=== PATIENT | female | born 1955 | race Caucasian/White ===

== ENCOUNTER → 2016-08-01 | Outpatient (CLI) | payer OTHER ==
--- NOTE | 2016-08-02 06:17 | PAP/PSG TECHNICIAN REPORT ---
[facility] Pipe Stem Sawyer Polysomnogram Report Study name: None Report date: 08/02/2016 Study date: 08/01/2016 Referring Physician: Etienne ROBERTS M.D. Name: CHIP PHAM Interpreting Physician: Patricia Roberts M.D. Date of : 1955 Pipe Stem Sawyer: Nicole Singh RPSGT. Sex: Female Age: 60 Study Type: PSG Weight: 169 lbs 13 in Height: 60 years, Height 5' 5" Neck Circum: BMI: 28.12 Medications: ATENOLOL 25 MG, HYDROCHLOROTHIAZIDE 25 MG, POSTASSIUM CHLORIDE 20 MEQ, ATORVASTATIN 20 MG, LEVOTHYROXINE 50 MCG, PREMARIN 0.45 MG, ZOMIG 5 MG Patient History 60 yr-old female here for a baseline/split study. She has a history of daytime sleepiness, witnessed apneas, bruxism, and non-refreshing sleep. Her Dewey scale is 8. The test was started on room air. ETCO2 testing was not utilized during this study. Room 3 Parameters Monitored NPSG: E1-M2, E2-M1, Fp1-M2, Fp2-M1, F3-M2, F4-M2, F4-M1, C3-M2, C4-M2, C4-M1, O1-M2, O2-M2, O2-M1, T3-M2, T4-M1, P3-M2, P4-M1, CHIN1, CHIN2, HR, EKG, Legs, PFLOW, SNOR, FLOW, CFLOW, Tidal Volume, THOR, ABDO, SpO2, PLTH, CPRESS, ETCO2 Wave, ETCO2, pH Sleep Architecture Sleep Stages Time at Lights Off 9:57:31 PM STAGES Time (min.) TST (%) Time at Lights On 5:40:01 AM Wake 82.5 -- Total Recording Time (TRT) 462.50 min. N1 18.5 5 Total Sleep Period (TSP) 392.0 min. N2 221.5 58 Total Sleep Time (TST) 380.0min. N3 42.5 11 Awake Time 82.5 min. REM 97.5 26 Wake after Sleep Onset 15.0 min. Sleep Efficiency (SE) 82 % Sleep Onset Latency (BRITTNEY) 67.5 min. Number of Stage 1 Shifts None Awakenings 17 Stage Changes 75 Number of REM periods 5 REM 97.5 26 REM Latency 74.0 min. NREM 282.5 74 Body Position Analysis Supine Right Left Side Prone Vertical Total Sleep Time (min.) 89.6 248.0 109.3 357.29 0.0 0.0 Total Sleep Time (%) 6% 65% 29% 94 0% N/A% Total Sleep Time REM (min.) 0.0 74.5 23.0 None 0.0 0.0 Total Sleep Time NREM (min.) 22.7 173.5 86.3 None 0.0 0.0 Intermittent Wake (min.) 66.9 9.8 5.7 None 0.0 0.0 Total Sleep Period (%) 6% None None None None None Arousals Myoclonus (PLM) * Events Count Index Events Count Index Spontaneous 15 2 Events Awake (PLMW) 76 55.3 Respiratory 5 0.8 Events Asleep w/ Arousal (PLMA) 4 0.6 PLM 4 1 Events Asleep w/o Arousal (PLMS) 38 6.0 Snoring 7 1 Total Asleep 42 6.6 Total 31 5 Total 118 15 Respiratory Analysis * CA OA MA CH H RERA Total Count 2 0 0 0 31 2 33 Index 0.3 0.0 0.0 0 4.9 0 5.5 Mean Duration 14.0 0.0 0.0 0.00 16.3 16.7 16.2 Longest Duration 16.2 0.0 0.0 0.00 0.0 17.4 35.7 Respiratory Event Summary Total Supine ~Supine Right Left Prone REM NREM Apneas Count 2 2 0 0 0 N/A 0 2 Index 0.3 5 0 0.0 0.0 N/A 0 0 Hypopneas (4% Desat) Count 31 8 23 0 23 N/A 16 15 Index 4.9 21.1 4 0.0 12.6 N/A 9.8 3.2 Apneas & All Hypopneas Count 33 10 23 0 23 N/A 16 17 Index 5.2 26 4 0 13 N/A 9.8 3.6 Respiratory Events ([employer]+All Hyp+RERA) Count 33 10 25 1 24 N/A 16 17 Index 5.5 26 4 0.2 13.2 N/A 9.8 4.0 Respiratory Related Arousal Count 5 10 4 1 3 N/A 0 5 Index 0.8 3 1 0 2 N/A 0 1 Snoring Analysis Supine Right Left Prone REM NREM Total Snore duration 20.1 min Snores count 65 372 385 N/A 212 610 822 Snore mean duration 1.5 Sec Snores index 172 90 211 N/A 130.5 129.6 129.8 TST with snoring (%) 5.3% Desaturation Event Summary: Minimum %SpO2 Event Count Mean/Min/Max Duration(sec.) Desaturation Index % Time In Bed > 90 53 24.4 / 5.8 / 57.0 7.1 97.2 86 - 90 2 12.5 / 10.5 / 14.5 9.4 2.8 81 - 85 0 N/A 0.0 0.0 76 - 80 0 N/A 0.0 0.0 71 - 75 0 N/A 0.0 0.0 66 - 70 0 N/A 0.0 0.0 61 - 65 0 N/A 0.0 0.0 56 - 60 0 N/A 0.0 0.0 51 - 55 0 N/A 0.0 0.0 < 50 0 N/A 0.0 0.0 Total REM NREM Awake <50% 0.0 min. 0.0 min. 0.0 min. 0.0 min. 51 - 60% 0.0 min. 0.0 min. 0.0 min. 0.0 min. 61 - 70% 0.0 min. 0.0 min. 0.0 min. 0.0 min. 71 - 80% 0.0 min. 0.0 min. 0.0 min. 0.0 min. 81 - 90% 12.9 min. 5.6 min. 3.6 min. 3.7 min. 91 - 100% 446.8 min. 91.9 min. 278.9 min. 76.0 min. Average 93 93 93 92 Minimum SpO2 85 85 88 89 Desaturation Event Index 7.0 11.7 5.3 8.0 # Desat. Events below 89% 7 5 2 N/A Time(%) with Saturation below 89% 0.4 0.3 0.0 0.0 Time(min.) with Saturation below 89% 1.7 1.6 0.1 0.0 Time (mins) REM (mins) NREM (mins) % of TST SpO2 Below 90% 31 11 N20 1.1 SpO2 Below 88% 3 0 0 0 Heart Rate Analysis Min (bpm) Max (bpm) Average (bpm) Awake 51 95 65 NREM 50 91 63 REM 56 80 69 Overall 50 91 65 Supplemental O2 Values Minimum O2 level: None Value Start Time End Time Pipe Stem Sawyer Comments Ms. Pham slept in the right, left, and supine positions. No cardiac arrhythmias or PLMs noted. One or two episodes of bruxism were noted. Snoring was noted and scored as a 2 on a scale of 1 through 5. (0=no snoring, 5=snoring loud enough to be heard through a closed door or down the francis way). She did not meet specific Split-Night criteria during the diagnostic portion of this study. She did not wake up to use the restroom during the night. Ms. Pham stated that she slept about the same as usual. The final report will be interpreted and signed by a sleep physician. The completed physician report will then be placed in the patient medical record. Therapy (cm H2O) 0 TIB (min.) 462.5 TST (min.) 380.0 Sleep Onset (min.) 67.5 REM Onset From Sleep (min.) 74.0 Sleep Efficiency % 82 Wakefulness (%) 18 Wakefulness (min.) 82.5 NREM 1 (%) 5 NREM 1 (min.) 18.5 NREM 2 (%) 58 NREM 2 (min.) 221.5 NREM 3 (%) 11 NREM 3 (min.) 42.5 REM (%) 26 REM (min.) 97.5 # Arousals 31 Arousal Index 5 # Snore 822 Snore Index 129.8 AHI 5.2 AHI Supine 26 AHI Non-Supine 4 NREM AHI 3.6 REM AHI 9.8 RDI 5.5 # Obstructive Apnea 0 # Central Apnea 2 # Mixed Apnea 0 # Hypopneas 31 RERAs 2 Total Respiratory Events 35 Time Below SpO2 89% (min.) 1.7 Mean NREM SpO2 (%) 93 Mean REM SpO2 (%) 93 Mean Sleep SpO2 (%) 93 Min NREM SpO2 (%) 88 Min REM SpO2 (%) 85 Position Supine (min.) 89.6 Position Non-supine (min.) 357.3 LM Index Sleep 6.6 LM Index NREM 4.9 LM Index REM 11.7 Mean Heart Rate (bpm) 65 Min Heart Rate (bpm) 50
--- NOTE | 2016-08-07 09:38 | POLYSOMNOGRAPH REPORT ---
REFERRING PERSON: Dr. Augustine Roberts. INBOUND SALES REPRESENTATIVE: Nicole Singh. Ms. Harrell is a 60-year-old female sent for baseline sleep study. She complains of excessive daytime sleepiness, loud snoring, bruxism and non-refreshing sleep. Her [place] sleepiness scale score on the evening of the study is 8. BMI is 28.12. Following the technical and digital specifications of the [place] [employer] (AASM), a standard diagnostic polysomnogram was performed, monitoring EEG, EOG, EMG (chin and leg deviations), oxygen saturation, body position, digital video, respiratory effort and airflow. The sleep stage and event scoring was based on the AASM Manual for the Scoring of Sleep and Associated Events, 2007 edition. Apneas are defined as a drop in the peak thermal sensor excursion by >90% of baseline for at least 10 seconds. Hypopneas were scored using the 4% oxygen desaturation rule (4A-[employer]ic[employer]) and a decrease in the nasal pressure excursions by >30% of baseline for at least 10 seconds. Respiratory effort-related arousal (RERA) is defined as a sequence of breaths lasting at least 10 seconds characterized by increasing respiratory effort or flattening of the nasal pressure waveform leading to an arousal from sleep when the sequence of breaths does not meet criteria for an apnea or hypopnea. Apnea Hypopnea index (AHI) is defined as the number of apneas and hypopneas occurring in an hour of sleep. Respiratory disturbance index (RDI) is defined as the number of apneas, hypopneas, and RERAs occurring in an hour of sleep. Ms. Harrell's total sleep period time was 392 minutes. Total sleep time was 380 minutes. Sleep efficiency was 82%. Latency to sleep onset was 67.5 minutes. Wake after sleep onset was 15 minutes. Total non-REM sleep time was 282.5 minutes. She spent 5% of that time in N1 sleep, 58% in N2 sleep and 11% in N3 sleep. REM latency was 74 minutes. Total REM sleep time was 97.5 minutes or 26% of total sleep time. There were 31 cortical arousals from sleep. Fifteen of these arousals were spontaneous, 5 were due to respiratory events, 4 due to periodic limb movements of sleep and 7 were due to snoring. There were 42 periodic limb movements noted on this test. Limb movement index was 6.6. Limb movement with arousal index was 0.6. There were 2 central, no obstructive, and no mixed apneas on this test. There were 31 hypopneas and 2 RERAs. Most of these respiratory events were in the latter part of the night. Apnea-hypopnea index was mildly elevated at 5.2. Supine AHI was 26 and REM AHI 9.8. There were 822 snoring events recorded. Total sleep time with snoring was 5.3%. Mean saturation during sleep was 93% with desaturations to 85%. Saturations were less than 89% for 1.7 minutes of testing time. There was no cardiac ectopy noted on this study. Heart rates ranged from a low of 50 beats per minute to a high of 91 beats per minute during sleep. There was 1 episode of bruxism noted on this test. IMPRESSION AND PLAN: A 60-year-old female with evidence of mild sleep apnea, particularly in supine sleep without nocturnal hypoxemia. One episode of bruxism was also noted. 1. This patient may benefit from positive airway pressure therapy. She should return to the sleep lab for a full night titration and then based on those results, be started on equipment at home. A download from her machine can be reviewed in 1 month, both to check compliance as well as AHI and further pressure adjustments can occur at that time. 2. Alternatively, this patient could be started on auto titrating CPAP with pressures of 5-15 cm. A download from her machine can be reviewed in 1 month and she can be set to optimal pressure at that time. 3. If this patient is unwilling or unable to tolerate CPAP therapy, she could be referred to ear, nose and throat or oral surgery/dental medicine (if appropriate) to discuss alternative treatments for sleep disordered breathing. 4. This patient's bruxism could be secondary to her untreated sleep apnea. Clinical correlation is needed.
== END | disposition home or self-care (01) ==
LOC: C.NEUR 20:00
PROVIDERS: ATTEND Family Medicine
DX: G47.30 Sleep apnea, unspecified (principal); G47.10 Hypersomnia, unspecified; R06.83 Snoring

== ENCOUNTER → 2017-04-16 | Outpatient (CLI) | payer OTHER ==
--- NOTE | 2017-04-16 14:15 | MAMMOGRAPHY REPORT ---
BILATERAL DIGITAL SCREENING MAMMOGRAM TOMOSYNTHESIS WITH CAD: 04/16/2017 CLINICAL HISTORY: Routine screening. Patient has no complaints. TECHNIQUE: Breast tomosynthesis in addition to standard 2D mammography was performed. Current study was also evaluated with a Computer Aided Detection (CAD) system. COMPARISON: Comparison is made to exams dated: 04/14/2016 mammogram, 04/13/2015 mammogram, 02/11/2013 ma mmogram, 02/09/2012 mammogram, and 01/28/2010 mammogram - [facility]. BREAST COMPOSITION: There are scattered areas of fibroglandular density in both breasts. FINDINGS: There are a few benign coarse calcifications in the breasts. No suspicious mass, senior software architect ural distortion or cluster of suspicious microcalcifications is seen. IMPRESSION: ACR BI-RADS CATEGORY 1: NEGATIVE There is no mammographic evidence of malignancy. A 1 year screening mammogram is recommended. The pa tient will receive written notification of the results. Approximately 10% of breast cancers are not detected with mammography. A negative mammographic report should not delay biopsy if a clinically suggestive mass is present. Maranda Cardoza M.D. ay/:04/16/2017 14:05:35 Licensing Officer: Aaliyah GILBERT)([employer]), [facility] letter sent: Normal 1/2 BI-RADS Code: ACR BI-RADS Category 1: Negative
== END | disposition home or self-care (01) ==
LOC: C.MAMM 11:25
PROVIDERS: ATTEND Family Medicine
DX: Z12.31 Encounter for screening mammogram for malignant neoplasm of breast (principal)